=== PATIENT | male | born 1975 | race Caucasian/White ===

== ENCOUNTER 2019-10-31 20:43 | Emergency (ER) | payer OTHER ==
[2019-10-31] MEDS ORDERED: ALBUTEROL SO4 2.5/IPRATROPIUM 0.5 INH SOL 3 ML VIAL.NEB. NEB ONE ×2 (20:47→21:28)
[2019-10-31] MEDS ORDERED: predniSONE 20 MG TABLET (UD) PO ONE (20:48)
[2019-10-31 20:52] VITALS: BP 149/99; PULSE 111; TEMP 98.7; BMI 31.6
--- NOTE | 2019-10-31 20:52 | PDOC ---
Rapid Medical Evaluation Time Seen by Provider: 10/31/19 20:44 Medical Evaluation: Allergies Allergy/AdvReac Type Severity Reaction Status Date / Time No Known Allergies Allergy Verified 12/09/15 11:54 10/31/19 20:49 I have performed a brief in-person evaluation of this patient. The patient presents with a chief complaint of: Pt is a 44 y/o male with a cough for the last several days. He has a history of breathing trouble and always has a cough. He smokes marijuana. He has had no recent travel, no sick contacts, no contacts with COVID-19, no fevers. He has recently been diagnosed with "breathing problems" but has not been treated as of yet. Pt was seen at [facility] and was told to come to the ED for COVID-19 testing "because they did not like the way he was breathing", despite the patient having no risk factors. Pertinent physical exam findings: Clear lungs, non-toxic, no respiratory distress I have ordered the following: cxr, duoneb, prednisone The patient will proceed to the ED for further evaluation Discharge Disposition - Diagnosis Cough - Referrals - Patient Instructions - Post Discharge Activity
[2019-10-31] MEDS ORDERED: predniSONE 20 MG TABLET (UD) ONE (21:28)
--- NOTE | 2019-10-31 22:01 | PDOC ---
History of Present Illness - General Stated Complaint: COUGH/HEADACHE Time Seen by Provider: 10/31/19 20:44 - History of Present Illness Initial Comments: 10/31/19 21:59 44-year-old male without comorbidities no recent travel presents for cough x1 day no systemic symptoms Past History - Past Medical History Allergies/Adverse Reactions: Allergies Allergy/AdvReac Type Severity Reaction Status Date / Time No Known Allergies Allergy Verified 10/31/19 20:52 Home Medications: Ambulatory Orders Ibuprofen [Motrin -] 600 mg PO TID #21 tablet 12/09/15 CVA: No COPD: No - Immunization History Immunization Up to Date: No - Psycho Social/Smoking Cessation Hx Smoking History: Never smoked Have you smoked in the past 12 months: No Number of Cigarettes Smoked Daily: 3 Information on smoking cessation initiated: No Hx Alcohol Use: No Drug/Substance Use Hx: Yes Substance Use Type: Marijuana Review of Systems - Review of Systems Constitutional: No: Fever Respiratory: Yes: Cough. No: Shortness of Breath *Physical Exam - Vital Signs Last Vital Signs Temp Pulse Resp BP Pulse Ox 98.7 F 111 H 22 H 149/99 97 10/31/19 20:47 10/31/19 20:47 10/31/19 20:47 10/31/19 20:47 10/31/19 20:47 - Physical Exam 10/31/19 21:59 GENERAL: The patient is awake, alert, and fully oriented, in no acute distress. HEAD: Normal with no signs of trauma. EYES: sclera anicteric, conjunctiva clear. ENT: Ears normal tympanic membranes normal oropharynx clear uvula midline NECK: Normal range of motion LUNGS: Breath sounds equal, clear to auscultation bilaterally. No wheezes, and no crackles. HEART: S1 and S2 without murmur, rub or gallop. ABDOMEN: Soft, nontender, normoactive bowel sounds. No guarding, no rebound. No masses. EXTREMITIES: Normal range of motion, no edema. No clubbing or cyanosis. No cords, erythema, or tenderness. NEUROLOGICAL: Cranial nerves II through XII grossly intact. PSYCH: Normal mood, normal affect. SKIN: Warm, Dry, normal turgor, no rashes or lesions noted. ED Treatment Course - Medications Given in the ED: ED Medications Discontinued Medications Generic Name Dose Route Start Last Admin Trade Name Freq PRN Reason Stop Dose Admin Albuterol/Ipratropium 1 amp 10/31/19 20:47 10/31/19 21:31 Duoneb - NEB 10/31/19 20:48 1 amp ONCE ONE Administration Prednisone 60 mg 10/31/19 20:48 10/31/19 21:31 Deltasone - PO 10/31/19 20:49 60 mg ONCE ONE Administration Medical Decision Making - Medical Decision Making 10/31/19 22:00 Patient clear after DuoNeb I did not listen to his chest before DuoNeb. He has a benign examination follow-up with primary care physician. No emergent intervention required at this time. I have reviewed the pathophysiology with the patient. They are in agreement with the treatment plan all questions were answered to their satisfaction. Understanding for follow-up without fail was also conveyed to the patient. Again they are in agreement. Discharge - Discharge Information Problems reviewed: Yes Clinical Impression/Diagnosis: Cough Condition: Stable Disposition: HOME - Admission No - Follow up/Referral Referrals: Tyron Archer [Primary Care Provider] - - Patient Discharge Instructions Additional Instructions: Return to the emergency room for further issues and without fail follow-up with your primary care physician in 1 to 2 days for further evaluation and treatment options. - Post Discharge Activity Work/Back to School Note: Back to Work
== END 2019-10-31 22:04 | disposition home or self-care (01) ==
LOC: JERFT 20:43 → JER 20:43 → JERFT 22:04
PROC: 3E0F7GC Introduction of Other Therapeutic Substance into Respiratory Tract, Via Natural or Artificial Opening (ICD-10-PCS; principal; 2019-10-31)
DX: R05 Cough (principal)
CPT/HCPCS: 71046-TC-FY; 94640; 99283-25

== ENCOUNTER 2021-05-31 17:01 | Observation (INO) | payer OTHER ==
[2021-05-31 17:32] VITALS: BMI 30.6
[2021-05-31] MEDS ORDERED: KETOROLAC TROMETHAMINE 30 MG/1 ML VIAL IVPUSH ONE (18:00)
[2021-05-31] MEDS ORDERED: diazePAM CARPU-JECT 10 MG/2 ML DISP.SYRIN IVPUSH ONE (18:00)
[2021-05-31] MEDS ORDERED: KETOROLAC TROMETHAMINE 30 MG/1 ML VIAL ONE (18:28)
[2021-05-31] MEDS ORDERED: diazePAM CARPU-JECT 10 MG/2 ML DISP.SYRIN ONE (18:28)
[2021-05-31 18:51] LABS: BASO % 0.4 % (0-2.0); EOS % 0.8 % (0-4.5); HEMATOCRIT 48.9 % (35.4-49); HEMOGLOBIN 17.3 GM/dL (11.7-16.9); LYMPH % 20.2 % (8-40); MCH 29.1 pg (25.7-33.7); MCHC 35.4 g/dl (32.0-35.9); MEAN CELL VOLUME 82.3 fl (80-96); MEAN PLT VOLUME 8.5 fl (7.5-11.1); MONO % 6.4 % (3.8-10.2); NEUT % 72.2 % (42.8-82.8); PLATELET COUNT 195 10^3/uL (134-434); RBC 5.95 M/mm3 (4.00-5.60); RDW 13.7 % (11.9-15.9); WHITE BLOOD COUNT 9.7 K/mm3 (4.0-10.0)
[2021-05-31 18:57] LABS: INR 1.07 (0.83-1.09)
[2021-05-31 19:00] LABS: ACTIVATED PTT 27.8 SECONDS (25.2-36.5)
[2021-05-31 19:11] LABS: CHLORIDE 106 mmol/L (98-107); SODIUM 138 mmol/L (136-145)
[2021-05-31 19:12] LABS: CALCIUM 8.6 mg/dL (8.5-10.1)
[2021-05-31 19:13] LABS: ANION GAP 10 MMOL/L (8-16); BLOOD UREA NITROGEN 13.2 mg/dL (7-18); CO2 23 mmol/L (21-32)
[2021-05-31 19:16] LABS: CREATININE 0.8 mg/dL (0.55-1.3); SGOT/AST 30 U/L (15-37); SGPT/ALT 75 U/L (13-61)
[2021-05-31 19:18] LABS: BILIRUBIN,TOTAL 1.2 mg/dL (0.2-1); TOT PROT 7.7 g/dl (6.4-8.2)
[2021-05-31 19:19] LABS: ALK PHOS 112 U/L (45-117)
[2021-05-31 19:55] LABS: GLUCOSE,RANDOM 88 mg/dL (74-106)
[2021-06-01] MEDS ORDERED: METOPROLOL TARTRATE 25 MG TABLET (FP) PO SCH ×3 (00:28→10:00)
[2021-06-01] MEDS ORDERED: clonazePAM 0.5 MG TABLET PO PRN (00:34)
[2021-06-01] MEDS ORDERED: ACETAMINOPHEN 325 MG TABLET (FP) PO PRN (00:34)
[2021-06-01] MEDS ORDERED: ENOXAPARIN NA (PORCINE) 40 MG/0.4 ML DISP.SYRIN SQ ONE (10:21)
[2021-06-01] MEDS ORDERED: METOPROLOL TARTRATE 25 MG TABLET (FP) ONE ×2 (10:21→21:14)
[2021-06-01] MEDS ORDERED: amLODIPine BESYLATE 5 MG TABLET (FP) ONE (10:21)
[2021-06-01] MEDS ORDERED: PANTOPRAZOLE 40 MG TABLET ONE (10:21)
[2021-06-01] MEDS: amLODIPine BESYLATE 5 MG TABLET (FP) PO SCH (11:30)
[2021-06-01] MEDS: ENOXAPARIN NA (PORCINE) 40 MG/0.4 ML DISP.SYRIN SQ SCH (11:30)
[2021-06-01] MEDS: METOPROLOL TARTRATE 25 MG TABLET (FP) PO SCH ×2 (11:30→21:19)
[2021-06-01] MEDS: PANTOPRAZOLE 40 MG TABLET PO SCH (11:30)
[2021-06-01] MEDS ORDERED: ASPIRIN COATED 81 MG TABLET.EC PO SCH (15:45)
[2021-06-01] MEDS ORDERED: ACETAMINOPHEN 325 MG TABLET (FP) ONE (21:20)
[2021-06-02 06:17] LABS: CHOLESTEROL 199 mg/dL (50-200); TRIGLYCERIDES 106 mg/dL (0-150)
[2021-06-02 06:18] LABS: HDL CHOLESTEROL 29 mg/dL (40-60); LDL CHOLESTEROL (ONLY SJRH) 139 mg/dL (5-100)
[2021-06-02] MEDS ORDERED: ASPIRIN COATED 81 MG TABLET.EC ONE (09:53)
[2021-06-02] MEDS ORDERED: METOPROLOL TARTRATE 25 MG TABLET (FP) ONE (09:53)
[2021-06-02] MEDS ORDERED: amLODIPine BESYLATE 5 MG TABLET (FP) ONE (09:53)
[2021-06-02] MEDS ORDERED: PANTOPRAZOLE 40 MG TABLET ONE (09:53)
[2021-06-02] MEDS ORDERED: ENOXAPARIN NA (PORCINE) 40 MG/0.4 ML DISP.SYRIN SQ ONE (09:54)
[2021-06-02] MEDS: ENOXAPARIN NA (PORCINE) 40 MG/0.4 ML DISP.SYRIN SQ SCH (10:13)
[2021-06-02] MEDS: METOPROLOL TARTRATE 25 MG TABLET (FP) PO SCH (10:13)
[2021-06-02] MEDS: PANTOPRAZOLE 40 MG TABLET PO SCH (10:14)
[2021-06-02] MEDS: amLODIPine BESYLATE 5 MG TABLET (FP) PO SCH (10:14)
[2021-06-02 18:47] VITALS: BP 169/100; PULSE 115; TEMP 99
[2021-06-02] MEDS ORDERED: METOPROLOL TARTRATE 25 MG TABLET (FP) PO SCH (22:00)
[2021-06-02] MEDS ORDERED: ATORVASTATIN CA 20 MG TABLET (FP) PO SCH (22:00)
[2021-06-02] MEDS ORDERED: ATORVASTATIN CA 80 MG TABLET (FP) PO SCH (22:00)
[2021-06-03] MEDS ORDERED: amLODIPine BESYLATE 10 MG TABLET (FP) PO SCH (10:00)
== END 2021-06-02 17:55 | disposition home or self-care (01) ==
LOC: JER 17:01 → JERBED 22:22
PROVIDERS: ADMIT Internal Medicine; ATTEND Internal Medicine
PROC: 3E033NZ Introduction of Analgesics, Hypnotics, Sedatives into Peripheral Vein, Percutaneous Approach (ICD-10-PCS; principal; 2021-05-31)
PROC: 3E023GC Introduction of Other Therapeutic Substance into Muscle, Percutaneous Approach (ICD-10-PCS; 2021-05-31)
PROC: 3E0333Z Introduction of Anti-inflammatory into Peripheral Vein, Percutaneous Approach (ICD-10-PCS; 2021-05-31)
DX: R07.9 Chest pain, unspecified (principal); F14.11 Cocaine abuse, in remission; I25.2 Old myocardial infarction; E66.9 Obesity, unspecified; Z68.30 Body mass index [BMI] 30.0-30.9, adult; I10 Essential (primary) hypertension; M19.90 Unspecified osteoarthritis, unspecified site; F17.210 Nicotine dependence, cigarettes, uncomplicated; Z85.830 Personal history of malignant neoplasm of bone; Z29.9 Encounter for prophylactic measures, unspecified; J45.909 Unspecified asthma, uncomplicated
CPT/HCPCS: 36415; 71275-TC; 80053; 80061; 82550; 84484; 85025; 85610; 85730; 93005; 93010; 93306-TC; 93351; 96372; 96374; 96375; 99285-25; C9803; G0378; Q9967; U0003; U0005

== ENCOUNTER 2022-12-23 11:20 | Emergency (ER) | payer OTHER ==
[2022-12-23 11:35] VITALS: BP 151/76; PULSE 70; RESP 18; TEMP 98.3; BMI 29.9
[2022-12-23 13:27] LABS: BASO % 0.4 % (0-2.0); EOS % 2.3 % (0-4.5); HEMATOCRIT 45.4 % (35.4-49); LYMPH % 25.3 % (8-40); MCH 29.1 pg (25.7-33.7); MCHC 35.3 g/dl (32.0-35.9); MEAN CELL VOLUME 82.5 fl (80-96); MEAN PLT VOLUME 8.7 fl (7.5-11.1); MONO % 6.8 % (3.8-10.2); NEUT % 65.2 % (42.8-82.8); PLATELET COUNT 211 10^3/uL (134-434); RDW 13.4 % (11.9-15.9); WHITE BLOOD COUNT 8.4 K/mm3 (4.0-10.0)
[2022-12-23 13:52] LABS: POTASSIUM 4.2 mmol/L (3.5-5.1)
[2022-12-23 13:54] LABS: ALBUMIN 3.8 g/dl (3.4-5.0); CALCIUM 8.9 mg/dL (8.5-10.1)
[2022-12-23 13:57] LABS: CREATININE 0.8 mg/dL (0.55-1.3)
[2022-12-23 14:00] LABS: BILIRUBIN,TOTAL 1.9 mg/dL (0.2-1); TOT PROT 7.3 g/dl (6.4-8.2)
== END 2022-12-23 17:00 | disposition home or self-care (01) ==
LOC: JER 11:20
DX: R07.89 Other chest pain (principal); R42 Dizziness and giddiness; R51.9 Headache, unspecified
CPT/HCPCS: 36415; 71046-TC-FY; 80053; 84484; 85025; 85379; 93005; 93010; 99284-25